=== PATIENT | female | born 1995 | race African-American/Black ===

== ENCOUNTER 2016-08-22 19:06 | Emergency (ER) | payer MEDICAID ==
[~2016-08-22] VITALS: Ht 167.6 cm; Wt 127.0 kg
--- NOTE | 2016-08-22 19:10 | NUR ---
Placed in room 07 . Placed on front desk monitor, blood pressure machine and pulse oximeter. To gown for exam. Side rails up.
[2016-08-22 19:20] VITALS: BP 142/75; PULSE 108; RESP 18; TEMP 98.5; O2SAT 98
--- NOTE | 2016-08-22 19:34 | NUR ---
Patient is ALOC x 4. Patient reports having lower Abdominal Pain since yesterday with cramping. Pain 10/10. Patient reports having 1 episode of vomiting and having vaginal spotting Abdomen is soft and round. No other complaints/injuries per patient or as noted.
--- NOTE | 2016-08-22 19:46 | NUR ---
JOAN Dietrich at bedside.
[2016-08-22] MEDS ORDERED: NACL 0.9% 1,000 ML IV ONE ×2 (20:00→20:45)
[2016-08-22] MEDS ORDERED: KETOROLAC TROMETHAMINE 30 MG VIAL IVP ONE (20:00)
[2016-08-22 20:13] LABS: BASOPHILS % (AUTO) 0.3 % (0.0-2.0); EOSINOPHILS # (AUTO) 0.1 K/uL (0.0-0.4); EOSINOPHILS % (AUTO) 0.5 % (0.0-4.0); HEMATOCRIT 31.8 % (36-48); HEMOGLOBIN 9.9 g/dL (12.0-16.0); LYMPHOCYTES # (AUTO) 2.7 K/uL (1.0-5.5); LYMPHOCYTES % (AUTO) 22.1 % (20.5-51.5); MEAN CORPUSCULAR HEMOGLOBIN 24 pg (27-31); MEAN CORPUSCULAR HGB CONC 31 % (32-36); MEAN CORPUSCULAR VOLUME 77 fL (79.0-98.0); MONOCYTES # (AUTO) 0.3 K/uL (0.0-1.0); MONOCYTES % (AUTO) 2.1 % (1.7-9.3); NEUTROPHILS # (AUTO) 9.3 K/uL (1.8-7.7); PLATELET COUNT (AUTO) 487 K/uL (130-430); RED BLOOD CELL COUNT(AUTO) 4.11 MIL/uL (4.2-6.2); RED CELL DISTRIBUTION WIDTH 16.3 % (9.0-15.0); WHITE BLOOD COUNT (AUTO) 12.4 K/uL (4.8-10.8)
[2016-08-22 20:15] LABS: BILIRUBIN,URINE NEGATIVE (NEGATIVE); BLOOD, URINE 2+ (NEGATIVE); CLARITY/URINE SL HAZY (CLEAR); COLOR,URINE YELLOW (YELLOW); GLUCOSE,URINE NEGATIVE (NEGATIVE); KETONES,URINE NEGATIVE (NEGATIVE); LEUKOCYTE ESTERASE ,URINE NEGATIVE (NEGATIVE); NITRITE, URINE NEGATIVE (NEGATIVE); PROTEIN URINE NEGATIVE (NEGATIVE); UROBILINOGEN,URINE 0.2 (0.2-1.0)
[2016-08-22 20:20] LABS: CALCIUM 9.1 mg/dL (8.4-11.0); CREATININE 0.95 mg/dL (0.55-1.30); POTASSIUM 3.9 mmol/L (3.5-5.1)
[2016-08-22 20:26] LABS: ALBUMIN 3.7 g/dL (3.4-4.8); TOTAL BILIRUBIN 0.1 mg/dL (0.0-1.0); TOTAL PROTEIN, SERUM 8.2 g/dL (6.4-8.3)
[2016-08-22 20:32] LABS: BACTERIA,URINE FEW /HPF (None Seen); MUCUS,URINE None Seen /LPF (None Seen); WBC,URINE 0-3 /HPF (0-3)
[2016-08-22 21:56] VITALS: BP 132/75; PULSE 86; RESP 18; TEMP 98.5; O2SAT 98
--- NOTE | 2016-08-22 21:56 | NUR ---
Patient given written and verbal discharge instructions and verbalizes understanding. ER MD discussed with patient the results and treatment provided. Patient in stable condition. ID arm band removed. IV catheter removed intact and dressing applied, no active bleeding. Rx of Motrin given. Patient educated on pain management and to follow up with PMD in 2 days. Pain Scale 0/10 Opportunity for questions provided and answered.
== END 2016-08-22 21:56 | disposition home or self-care (01) ==
LOC: SED 19:06
DX: N93.8 Other specified abnormal uterine and vaginal bleeding (principal); D64.9 Anemia, unspecified; D72.829 Elevated white blood cell count, unspecified
CPT/HCPCS: 36415; 76830; 76857; 80053; 81000; 81025; 85025; 96361; 96374; 99285; J1885; J7030

== ENCOUNTER 2016-10-02 17:34 | Emergency (ER) | payer MEDICAID ==
[~2016-10-02] VITALS: Ht 162.6 cm; Wt 135.2 kg
[2016-10-02 18:06] VITALS: BP_SYST 120
[2016-10-02 18:58] LABS: BASOPHILS # (AUTO) 0.1 K/uL (0.0-0.2); EOSINOPHILS # (AUTO) 0.1 K/uL (0.0-0.4); HEMOGLOBIN 10.1 g/dL (12.0-16.0); LYMPHOCYTES # (AUTO) 3.2 K/uL (1.0-5.5); LYMPHOCYTES % (AUTO) 24.9 % (20.5-51.5); MEAN CORPUSCULAR HEMOGLOBIN 23 pg (27-31); MEAN CORPUSCULAR HGB CONC 31 % (32-36); MEAN CORPUSCULAR VOLUME 72 fL (79.0-98.0); MONOCYTES # (AUTO) 0.3 K/uL (0.0-1.0); MONOCYTES % (AUTO) 2.2 % (1.7-9.3); NEUTROPHILS # (AUTO) 9.2 K/uL (1.8-7.7); NEUTROPHILS % (AUTO) 70.9 % (40.0-70.0); PLATELET COUNT (AUTO) 477 K/uL (130-430); RED BLOOD CELL COUNT(AUTO) 4.42 MIL/uL (4.2-6.2); RED CELL DISTRIBUTION WIDTH 18.3 % (9.0-15.0); WHITE BLOOD COUNT (AUTO) 12.9 K/uL (4.8-10.8)
[2016-10-02 19:06] LABS: CALCIUM 8.9 mg/dL (8.4-11.0); CREATININE 0.89 mg/dL (0.55-1.30); POTASSIUM 3.2 mmol/L (3.5-5.1)
[2016-10-02 20:23] LABS: BILIRUBIN,URINE NEGATIVE (NEGATIVE); BLOOD, URINE 3+ (NEGATIVE); CLARITY/URINE CLOUDY (CLEAR); COLOR,URINE YELLOW (YELLOW); GLUCOSE,URINE NEGATIVE (NEGATIVE); KETONES,URINE NEGATIVE (NEGATIVE); LEUKOCYTE ESTERASE ,URINE 1+ (NEGATIVE); NITRITE, URINE NEGATIVE (NEGATIVE); PH,URINE 6.5 (5.0-8.0); PROTEIN URINE TRACE (NEGATIVE); UROBILINOGEN,URINE 0.2 (0.2-1.0)
[2016-10-02 20:25] LABS: HCG,QUAL RESULT NEGATIVE (NEGATIVE)
[2016-10-02 20:47] LABS: BACTERIA,URINE MODERATE /HPF (None Seen)
[2016-10-02 20:48] LABS: MUCUS,URINE 1+ /LPF (None Seen)
[2016-10-02] MEDS ORDERED: OXYCODONE/ACETAMINOPHEN 5-325 TABLET PO ONE (21:30)
[2016-10-02] MEDS ORDERED: POTASSIUM CHLORIDE 10 MEQ TAB.PRT.SR PO ONE (21:30)
[2016-10-02 21:37] LABS: PROTHROMBIN TIME 10.8 SECS (9.5-12.5)
[2016-10-02] MEDS ORDERED: cefTRIAXone 1 GM VIAL IM ONE (23:00)
[2016-10-02] MEDS ORDERED: LIDOCAINE 1%, 20 ML MDV 20 ML ONE (23:07)
[2016-10-02 23:29] VITALS: BP_SYST 123
== END 2016-10-02 23:29 | disposition home or self-care (01) ==
LOC: SED 17:34
DX: N94.6 Dysmenorrhea, unspecified (principal); N39.0 Urinary tract infection, site not specified
CPT/HCPCS: 36415; 74176; 80048; 81000; 81025; 84703; 85025; 85610; 87086; 87210; 87491; 87591; 96372; 99285; J0696; J2001

== ENCOUNTER 2017-11-11 18:57 | Emergency (ER) | payer MEDICAID ==
[~2017-11-11] VITALS: Ht 162.6 cm; Wt 133.8 kg
[2017-11-11 19:15] VITALS: BP_SYST 160
[2017-11-11] MEDS ORDERED: PHENAZOPYRIDINE HCL 100 MG TABLET PO ONE (19:30)
[2017-11-11 19:48] LABS: BILIRUBIN,URINE NEGATIVE (NEGATIVE); BLOOD, URINE 3+ (NEGATIVE); CLARITY/URINE HAZY (CLEAR); COLOR,URINE YELLOW (YELLOW); GLUCOSE,URINE NEGATIVE (NEGATIVE); KETONES,URINE NEGATIVE (NEGATIVE); LEUKOCYTE ESTERASE ,URINE TRACE (NEGATIVE); NITRITE, URINE NEGATIVE (NEGATIVE); PH,URINE 6.5 (5.0-8.0); PROTEIN URINE TRACE (NEGATIVE); UROBILINOGEN,URINE 0.2 (0.2-1.0)
[2017-11-11 20:08] LABS: BACTERIA,URINE FEW /HPF (None Seen); MUCUS,URINE None Seen /LPF (None Seen); WBC,URINE 0-3 /HPF (0-3)
[2017-11-11 20:45] VITALS: BP_SYST 146
== END 2017-11-11 20:45 | disposition home or self-care (01) ==
LOC: SED 18:57
DX: N39.0 Urinary tract infection, site not specified (principal); R03.0 Elevated blood-pressure reading, without diagnosis of hypertension
CPT/HCPCS: 81000-TC; 81025; 87086; 87210-TC; 99284

== ENCOUNTER 2018-02-19 12:24 | Emergency (ER) | payer MEDICAID ==
[~2018-02-19] VITALS: Ht 165.1 cm; Wt 104.3 kg
[2018-02-19 12:35] VITALS: BP_SYST 136
--- NOTE | 2018-02-19 12:39 | NUR ---
Patient triaged and placed in waiting room. VSS and patient appears in no acute distress at this time. Accompanied by self, awaiting available bed, and MD notified of need for MSE.
--- NOTE | 2018-02-19 12:53 | NUR ---
Pt placed in bed 7
--- NOTE | 2018-02-19 13:00 | NUR ---
Pt C/O cyst on vagina since this morning. Pt states it is uncomfortable to sit. Pt denies any chest pain, shortness of breath, nausea or vomiting. Pt's vital signs are stable will continue to monitor.
[2018-02-19 14:45] VITALS: BP_SYST 128
--- NOTE | 2018-02-19 14:48 | NUR ---
Patient given written and verbal discharge instructions and verbalizes understanding. ER MD discussed with patient the results and treatment provided. Patient in stable condition. ID arm band removed. Rx of TRAMADOL, SUPREX, CLINDAMYCIN, MOTRIN given. Patient educated on pain management and to follow up with PMD. Pain Scale 0/10. Opportunity for questions provided and answered. Medication side effect fact sheet provided.
[2018-02-21 02:08] LABS: CHLAMYDIA TRACHOMATIS NAA Negative (Negative); NEISSERIA GONORRHOEAE NAA Negative (Negative)
== END 2018-02-19 14:45 | disposition home or self-care (01) ==
LOC: SED 12:24
DX: N75.0 Cyst of Bartholin's gland (principal); R03.0 Elevated blood-pressure reading, without diagnosis of hypertension
CPT/HCPCS: 81025; 87210-TC; 87252; 87491; 87591; 99283

== ENCOUNTER 2018-08-16 19:09 | Emergency (ER) | payer MEDICAID ==
[~2018-08-16] VITALS: Ht 162.6 cm; Wt 145.1 kg
[2018-08-16 19:33] VITALS: BP_SYST 138
[2018-08-16 21:59] VITALS: BP_SYST 132
== END 2018-08-16 21:59 | disposition home or self-care (01) ==
LOC: SED 19:09
DX: N75.0 Cyst of Bartholin's gland (principal); R03.0 Elevated blood-pressure reading, without diagnosis of hypertension; Z91.013 Allergy to seafood
CPT/HCPCS: 81025; 99283

== ENCOUNTER 2018-11-25 21:21 | Emergency (ER) | payer MEDICAID ==
[~2018-11-25] VITALS: Ht 162.6 cm; Wt 104.3 kg
[2018-11-25 21:28] VITALS: BP_SYST 158
--- NOTE | 2018-11-25 21:37 | NUR ---
Patient triaged and placed in waiting room. VSS and patient appears in no acute distress at this time. Accompanied by family, awaiting available bed, and MD notified of need for MSE.
--- NOTE | 2018-11-25 22:23 | NUR ---
Patient to ER bed 6 to gown for evaluation. Side rails up.
--- NOTE | 2018-11-25 22:30 | NUR ---
ER at bedside examining patient.
--- NOTE | 2018-11-25 22:40 | NUR ---
Pt came to the ED for a stated syncopal episode. Reports she has been bleeding for 10 months. Reports that she is being seen by her PCP. Reports she had a blood transfusion 2 weeks ago at [facility] and was placed on irons supplements and provera. Reports sharp shooting pain radiating down ABD. Pt reports she was at the store and blacked out for a little. Denies head trauma. Reports she fell on her knee. Denies SOB or chest pain. No other complaints/injuries noted. Will cont. to monitor.
--- NOTE | 2018-11-25 22:45 | NUR ---
Attempted IV 2 times. unable to start IV. ER made aware.
[2018-11-25] MEDS ORDERED: NACL 0.9% 1,000 ML IV ONE (22:50)
--- NOTE | 2018-11-25 23:00 | NUR ---
CN at bedside attempting IV.
[2018-11-25 23:37] LABS: BILIRUBIN,URINE NEGATIVE (NEGATIVE); BLOOD, URINE 3+ (NEGATIVE); CLARITY/URINE HAZY (CLEAR); COLOR,URINE YELLOW (YELLOW); GLUCOSE,URINE NEGATIVE (NEGATIVE); KETONES,URINE TRACE (NEGATIVE); LEUKOCYTE ESTERASE ,URINE NEGATIVE (NEGATIVE); NITRITE, URINE NEGATIVE (NEGATIVE); PROTEIN URINE TRACE (NEGATIVE)
[2018-11-25 23:38] LABS: BASOPHILS # (AUTO) 0.1 K/uL (0.0-0.2); BASOPHILS % (AUTO) 0.6 % (0.0-2.0); EOSINOPHILS # (AUTO) 0.2 K/uL (0.0-0.4); EOSINOPHILS % (AUTO) 1.8 % (0.0-4.0); HEMATOCRIT 29.4 % (36-48); HEMOGLOBIN 9.6 g/dL (12.0-16.0); LYMPHOCYTES # (AUTO) 3.3 K/uL (1.0-5.5); LYMPHOCYTES % (AUTO) 32.2 % (20.5-51.5); MEAN CORPUSCULAR HEMOGLOBIN 23 pg (27-31); MEAN CORPUSCULAR HGB CONC 33 % (32-36); MEAN CORPUSCULAR VOLUME 70 fL (79.0-98.0); MONOCYTES # (AUTO) 0.5 K/uL (0.0-1.0); NEUTROPHILS # (AUTO) 6.2 K/uL (1.8-7.7); NEUTROPHILS % (AUTO) 60.4 % (40.0-70.0); PLATELET COUNT (AUTO) 459 K/uL (130-430); RED BLOOD CELL COUNT(AUTO) 4.23 MIL/uL (4.2-6.2); RED CELL DISTRIBUTION WIDTH 26.3 % (9.0-15.0); WHITE BLOOD COUNT (AUTO) 10.2 K/uL (4.8-10.8)
[2018-11-25 23:48] LABS: CALCIUM 8.4 mg/dL (8.4-11.0); CREATININE 0.83 mg/dL (0.55-1.30)
[2018-11-25 23:54] LABS: ALBUMIN 3.2 g/dL (3.4-4.8); TOTAL BILIRUBIN 0.2 mg/dL (0.0-1.0)
[2018-11-26 00:08] LABS: BACTERIA,URINE FEW /HPF (None Seen); RBC,URINE 50-80 /HPF (0-3); WBC,URINE 0-3 /HPF (0-3)
--- NOTE | 2018-11-26 00:19 | NUR ---
Made Dr. Briggs aware, CN and 3 Rns are unable to start IV. Per Dr. Briggs, we can hold fluids.
--- NOTE | 2018-11-26 01:00 | NUR ---
Pt resting comfortably in bed, no signs of acute distress. Will cont. to monitor.
--- NOTE | 2018-11-26 02:00 | NUR ---
Pt resting comfortably in bed, no signs of acute distress. Will cont. to monitor.
[2018-11-26 03:16] VITALS: BP_SYST 158
--- NOTE | 2018-11-26 03:16 | NUR ---
Patient given written and verbal discharge instructions and verbalizes understanding. ER MD Dr. Brigsg discussed with patient the results and treatment provided. Patient in stable condition. ID arm band removed. IV catheter removed intact and dressing applied, no active bleeding. Patient educated on pain management and to follow up with PMD. Pain Scale 0/10. Opportunity for questions provided and answered. Medication side effect fact sheet provided.
== END 2018-11-26 03:16 | disposition home or self-care (01) ==
LOC: SED 21:21
DX: R55 Syncope and collapse (principal); F17.200 Nicotine dependence, unspecified, uncomplicated; Z88.6 Allergy status to analgesic agent; Z91.013 Allergy to seafood; Z86.2 Personal history of diseases of the blood and blood-forming organs and certain disorders involving the immune mechanism
CPT/HCPCS: 36415; 76830; 76857; 80053; 81000; 85025; 96360; 99284; J7030

== ENCOUNTER 2019-04-28 02:39 | Emergency (ER) | payer MEDICAID ==
[~2019-04-28] VITALS: Ht 162.6 cm; Wt 149.2 kg
[2019-04-28 03:20] VITALS: BP_SYST 148
--- NOTE | 2019-04-28 05:19 | NUR ---
Pt ambulatory to bed 2 for evaluation
--- NOTE | 2019-04-28 05:42 | NUR ---
Pt presents to ER with c/o cough. Pt A&Ox4. Pt states cough has been present for 6 weeks. Pt states she was seen at [facility] March 11, 2019 and given antibiotics but pt states she does not remember what antibiotics. Pt states no relief from antibiotics. Pt states nasal congestion for 3 days. Pt has clear bilateral lung sounds with no use of accessory muscles. Pt denies fever, nausea, vomiting and chills. Will continue to monitor.
--- NOTE | 2019-04-28 06:00 | NUR ---
ER Dr. mason at bedside examining patient.
[2019-04-28] MEDS ORDERED: AZITHROMYCIN 250 MG TABLET PO ONE (06:15)
[2019-04-28 06:25] VITALS: BP_SYST 145
--- NOTE | 2019-04-28 06:25 | NUR ---
Patient given written and verbal discharge instructions and verbalizes understanding. ER MD discussed with patient the results and treatment provided. Patient in stable condition. ID arm band removed. Rx of Zithromax 250 mg given. Patient educated on pain management and to follow up with PMD. Pain Scale. Opportunity for questions provided and answered. Medication side effect fact sheet provided.
== END 2019-04-28 06:25 | disposition home or self-care (01) ==
LOC: SED 02:39
DX: R05 Cough (principal); F17.200 Nicotine dependence, unspecified, uncomplicated; Z88.6 Allergy status to analgesic agent; Z91.013 Allergy to seafood
CPT/HCPCS: 71045; 71046; 99283; Q0144